=== PATIENT | female | born 1935 | race Caucasian/White ===

== ENCOUNTER 2017-08-20 20:24 | Emergency (ER) | payer MEDICARE, MEDICAID ==
[~2017-08-20] VITALS: Ht 157.5 cm; Wt 53.5 kg
[2017-08-20 20:40] VITALS: BP 163/85
--- NOTE | 2017-08-20 21:07 | Emergency Room Report ---
History of Present Illness General Chief Complaint: Upper Respiratory Illness Source: Patient Present Illness HPI Patient is an 82-year-old female who presented after increased productive cough. Patient gradual onset of symptoms over the past few days. Patient reports having worsening discoloration of yellow-green sputum. She reports having some prior history of HIV but has undetectable viral load and normal CD4 count. The patient was being compliant with her medications. She is penicillin allergic. The patient denies any fever or chills. She denies having dizzy or lightheaded. Allergies: Coded Allergies: PENICILLINS (Verified Allergy, Intermediate, itching, 08/20/17) Patient History Past Medical History: see triage record Last Menstrual Period: 20 years ago Reviewed Nursing Documentation: PMH: Agreed; PSxH: Agreed Review of Systems All Other Systems: negative except mentioned in HPI Physical Exam Vital Signs Date Time Temp Pulse Resp B/P (MAP) Pulse Ox O2 Delivery O2 Flow Rate FiO2 08/20/17 20:35 98.1 70 16 163/85 95 Room Air 98.1 Sp02 EP Interpretation: reviewed, normal General Appearance: normal inspection, well appearing, no apparent distress, alert Head: atraumatic ENT: normal ENT inspection, hearing grossly normal, normal voice Neck: normal inspection, full range of motion, supple, no bony tend Respiratory: normal inspection, lungs clear, normal breath sounds, no respiratory distress, no retraction, no wheezing Cardiovascular #1: regular rate, rhythm, no edema Gastrointestinal: normal inspection, normal bowel sounds, non tender, soft, no guarding, no hernia Genitourinary: no CVA tenderness Musculoskeletal: normal inspection, back normal, normal range of motion Neurologic: normal inspection, alert, oriented x3, responsive, tourist guide III-XII nml as tested, speech normal Psychiatric: normal inspection, judgement/insight normal, mood/affect normal Skin: normal inspection, normal color, no rash Medical Decision Making Diagnostic Impression: Primary Impression: Pneumonia ER Course Patient presents for cough. Differential diagnosis included but was not limited to bronchitis, pneumonia, pulmonary embolism, pericarditis, asthma, foreign body.Because of complexity of patient's case imaging studies were ordered. The chest x-ray one view was ordered. The patient was given prescription for oral antibiotics. Patient appears to be in no respiratory distress and appears to be stable for outpatient management.The patient is advised to follow up with primary care doctor in 1-2 days. Patient is advised to return if any worsening condition or if any changes in status that are concerning. This report is dictated with [employer] public information relations manager software which may occasionally lead to discrepancies related to use of this software. Chest X-Ray Diagnostic Results Chest X-Ray Diagnostic Results : Chest X-Ray Ordered: Yes # of Views/Limited/Complete: 1 View Indication: Other - Productive cough EP Interpretation: Yes Interpretation: no effusion, no pneumothorax, other - right lung infiltrate Impression: Other - right lower lobe infiltrate Electronically Signed by: Electronically signed by Dr. Gt Monroy M.D. Last Vital Signs Date Time Temp Pulse Resp B/P (MAP) Pulse Ox O2 Delivery O2 Flow Rate FiO2 08/20/17 20:40 70 16 Room Air 08/20/17 20:35 98.1 163/85 95 98.1 Status: improved Disposition: HOME, SELF-CARE Condition: Stable Scripts Azithromycin* (ZITHROMAX*) 250 Mg Tablet 250 MG ORAL DAILY, #6 TAB 0 Refills Take two tables once daily for 1 day, then one tablet once daily for 4 days. Prov: Gt Monroy 08/20/17 Gt Monroy August 20, 2017 21:07
[2017-08-20] MEDS ORDERED: ZITHROMAX250 MG ORAL (21:24)
[2017-08-20 21:28] VITALS: BP 163/85
== END 2017-08-20 22:05 | disposition home or self-care (01) ==
LOC: EMR 22:04
DX: J18.9 Pneumonia, unspecified organism (principal); Z88.0 Allergy status to penicillin
CPT/HCPCS: 71045; 99283

== ENCOUNTER 2018-12-25 17:08 | Emergency (ER) | payer MEDICARE, MEDICAID ==
[~2018-12-25] VITALS: Ht 157.5 cm; Wt 52.6 kg
[~2018-12-25 17:08] MED LIST: ZITHROMAX250 MG ORAL
[2018-12-25 17:15] VITALS: BP 156/92
[2018-12-25] MEDS ORDERED: TRIUMEQ 600-501 EACH PO (17:18)
[2018-12-25] MEDS ORDERED: ATORVASTATIN CA10 MG ORAL (17:18)
[2018-12-25] MEDS ORDERED: ACETAMINOPHEN-1 EAC1 ORAL (17:45)
[2018-12-25] MEDS ORDERED: Tylenol #3 tab (300mg/30mg) ORAL ONE (17:45)
[2018-12-25 17:48] VITALS: BP 145/90
--- NOTE | 2018-12-25 17:48 | NUR ---
ER DISCHARGE NOTE: Pt was seen due to left leg pain. Patient is cleared to be discharged per PA, pt is aox4, on room air, with stable vital signs. pt was given dc and prescription instructions, pt was able to verbalize understanding, pt id band removed. pt is able to ambulate with steady gait. pt took all belongings and left with her family member.
--- NOTE | 2018-12-25 21:57 | Emergency Room Report ---
History of Present Illness General Chief Complaint: Pain Source: Patient, Medical Record (ARGENT[place] TELLEZ) Present Illness HPI Patient is an 83-year-old female presenting for lower back pain which occurred one month prior for no known reason. She denies any injury. Pain is described as a 10 out of 10 dull ache to the left lower back and radiates down the left leg. Seems to occur at random intervals. She has used Tylenol and ibuprofen with minimal improvement. She denies other symptoms including N, V, F, chills, abd pain, incontinence, CP, SOB (ARGENT[place] TELLEZ.AHugo) Allergies: Coded Allergies: PENICILLINS (Verified Allergy, Intermediate, itching, 08/20/17) Patient History Past Medical History: see triage record Pertinent Family History: none Reviewed Nursing Documentation: PMH: Agreed; PSxH: Agreed (ARGENT[place] TELLEZ) Nursing Documentation-PMH Past Medical History: No History, Except For (ARGENT[place] TELLEZ.Elizabeth) Review of Systems All Other Systems: negative except mentioned in HPI (ARGENTINA TELLEZ P.Elizabeth) Physical Exam Vital Signs Date Time Temp Pulse Resp B/P (MAP) Pulse Ox O2 Delivery O2 Flow Rate FiO2 12/25/18 17:15 98.1 77 18 156/92 96 Room Air Sp02 EP Interpretation: reviewed, normal General Appearance: no apparent distress, alert, GCS 15, non-toxic Head: normocephalic, atraumatic Respiratory: chest non-tender, lungs clear, normal breath sounds, speaking full sentences Cardiovascular #1: regular rate, rhythm, no edema Musculoskeletal: back normal, gait/station normal, normal range of motion, tender - L gluteal region Neurologic: alert, oriented x3, responsive, motor strength/tone normal, sensory intact, speech normal Psychiatric: judgement/insight normal, memory normal, mood/affect normal, no suicidal/homicidal ideation Skin: no rash (ARG[place] TELLEZ) Medical Decision Making OR Attestation Dr. Mederos is my supervising physician. Patient management was discussed with my supervising physician (ARG[place] TELLEZ) Medicare Attestation The history of Gabriela Cortes has been reviewed and management options for her have been examined and discussed by Good Mederos. I have personally examined and interviewed the patient. (Good Mederos MD) Diagnostic Impression: Primary Impression: Lower back pain Qualified Codes: M54.42 - Lumbago with sciatica, left side ER Course Patient is an 83-year-old female presenting for lower back pain which occurred one month prior for no known reason Ddx considered include but not limited to sciatica, lumbar strain, degenerative disease, cauda equina syndrome, chronic pain PE: vitals stable. NAD Normal gait. Normal active range of motion of lumbar spine. No midline tenderness or step- offs + L SLR Pt given T#3 which has helped She is discharged home with the same medication and is told to follow-up with her primary doctor as soon as possible. ER precautions given (ARGENTINA TELLEZ) Last Vital Signs Date Time Temp Pulse Resp B/P (MAP) Pulse Ox O2 Delivery O2 Flow Rate FiO2 12/25/18 17:48 98.5 83 15 145/90 99 Room Air Status: improved (ARG[place] TELLEZ.Elizabeth) Disposition: HOME, SELF-CARE Condition: Improved Scripts Acetaminophen With Codeine (T#3) (TYLENOL #3 TAB*) Y Tab 1 TAB ORAL Q6HR PRN for For Pain, #10 TAB Prov: ARGENTINA TELLEZ 12/25/18 Referrals: NON PHYSICIAN (PCP) Patient Instructions: Sciatica Additional Instructions: I discussed my findings with the patient. All questions and concerns have been answered. Treatment and medication compliance have been addressed. I advised the patient that they need to follow up with primary doctor as soon as possible. Return to ED if symptoms worsen, new symptoms arise, or if needed for any reason. Patient verbalized understanding of discharge instructions. ARGENTINA TELLEZ Dec 25, 2018 21:57 Good Mederos MD Dec 28, 2018 06:35
== END 2018-12-25 17:48 | disposition home or self-care (01) ==
LOC: EMR 17:30
DX: M54.42 Lumbago with sciatica, left side (principal); Z88.0 Allergy status to penicillin
CPT/HCPCS: 99282